=== PATIENT | female | born 1955 ===

== ENCOUNTER 2024-03-26 05:47 | Day surgery (SDC) | payer OTHER ==
[2024-03-19 10:23] LABS: URINE APPEARANCE Clear; URINE BILIRRUBIN Negative (NEGATIVE); URINE BLOOD Negative; URINE COLOR Yellow; URINE GLUCOSE Negative (NEGATIVE); URINE KETONE Negative (NEGATIVE); URINE LEUKOCYTE Trace; URINE NITRATE Negative; URINE PROTEIN Negative (NEGATIVE); URINE UROBILINOGEN 0.2 E.U./dl
[2024-03-19 10:24] LABS: URINE CAST 0.15 uL (0.0-1.40); URINE EPITHELIAL CELLS 39.8 uL (0.0-38.8); URINE RBC 1.5 uL (0.0-20.8); URINE WBC 13.4 uL (0.0-23.2)
[2024-03-19 10:38] LABS: HEMATOCRIT 39.6 % (36.0-45.00); HEMOGLOBIN 12.9 g/dL (12.0-15.00); MEAN CELL VOLUME 77.5 fL (80.00-100.00); MEAN CORPUSCULAR HEMOGLOBIN 25.2 pg (27.00-32.0); MEAN CORPUSCULAR HGB CONC 32.6 g/dl (32.0-36.0); PLATELET COUNT 352 K/uL (150-450); RED BLOOD COUNT 5.11 M/uL (4.00-6.00); RED CELL DISTRIBUTION WIDTH 14.8 % (11.5-14.5)
[2024-03-19 11:00] LABS: INR 0.95; PARTIAL THROMBOPLASTIN TIME 30.4 SECONDS (22.0-34.0)
[2024-03-19 11:23] LABS: ALBUMIN 3.5 gm/dL (3.4-5.0); BILIRUBIN TOTAL 0.36 mg/dL (0.3-1.2); CALCIUM 9.3 mg/dL (8.5-10.1); CREATININE SERUM 0.58 mg/dL (0.55-1.02); GFR 104.01; GLOBULINA 3.5 G/DL (2.4-3.5); POTASSIUM 4.19 mEq/L (3.5-5.1)
[~2024-03-26] VITALS: Ht 149.9 cm; Wt 68.0 kg
[~2024-03-26 05:47] MED LIST: CELEBREX200MG PO; CYMBALTA30 MG PO; FLONASE16 GM NS; LEVOTHYROXINE25 MCG PO; NEXIUM 24HR20 M1 PO; PANADOL EXTRA500 MG PO; PRAVASTATIN SOD20 MG PO; PROVENTIL S2 MG/5 ML PO; TUMS200 MG PO; ZANAFLEX2 M1 PO; ZYRTEC10 M3 PO
[2024-03-26] MEDS ORDERED: HEMOSTATIC MATRIX 1 KIT KIT TOP ONE (08:56)
[2024-03-26] MEDS ORDERED: POVIDONE-IODINE 118 ML BOTT TOP ONE ×3 (08:56→10:45)
[2024-03-26] MEDS ORDERED: DIBUCAINE 30 GM TUBE ONE (08:56)
[2024-03-26] MEDS ORDERED: levoFLOXacin IN DEXTROSE 5 % 500MG/100ML PIGGYBAG IV ONE (09:10)
[2024-03-26] MEDS ORDERED: METRONIDAZOLE/SODIUM CHLORIDE 500 MG/100 ML PIGGYBACK IV ONE (09:10)
[2024-03-26] MEDS ORDERED: BUPIVACAINE LIPOSOME/PF 266 MG/20 ML VIAL IJ ONE (09:31)
[2024-03-26] MEDS ORDERED: BUPIVACAINE HCL 30 ML VIAL IJ ONE (10:45)
[2024-03-26] MEDS ORDERED: NEURONTIN300 MG PO (13:47)
[2024-03-26] MEDS ORDERED: TRAMADOL HCL50 MG PO (13:47)
== END 2024-03-26 16:35 | disposition home or self-care (01) ==
LOC: CIR.AMB 05:47
PROVIDERS: ATTEND Surgery
DX: K64.2 Third degree hemorrhoids (principal); K64.4 Residual hemorrhoidal skin tags; K64.8 Other hemorrhoids; Z91.013 Allergy to seafood; E03.9 Hypothyroidism, unspecified; J45.909 Unspecified asthma, uncomplicated